=== PATIENT | female | born 2000 | race Two or more races ===

== ENCOUNTER 2021-04-30 16:20 | Inpatient (IN) | payer BC, SELFPAY ==
[~2021-04-30] VITALS: Ht 154.9 cm; Wt 88.5 kg
[2021-04-30] MEDS ORDERED: CARBOPROST 250 MCG/ML AMP IM PRN (17:15)
[2021-04-30] MEDS ORDERED: PROMETHAZINE 25 MG/ML VIAL IVP PRN (17:15)
[2021-04-30] MEDS ORDERED: NALBUPHINE 10 MG/ML AMP IVP PRN (17:15)
[2021-04-30] MEDS ORDERED: OXYTOCIN 10 UNITS/ML VIAL IM SCH (17:15)
[2021-04-30] MEDS ORDERED: LACTATED RINGERS 1,000 ML IV SCH (17:15)
[2021-04-30] MEDS ORDERED: METHYLERGONOVINE 0.2 MG/ML AMP IM PRN (17:15)
[2021-04-30] MEDS ORDERED: PNV91TAB8 PO (17:26)
[2021-04-30 17:41] LABS: BASOPHILS # (AUTO) 0.1 K/uL (0.00-0.22); BASOPHILS % (AUTO) 0.7 % (0.0-2.0); EOSINOPHILS % (AUTO) 0.2 % (0.0-4.0); HEMATOCRIT 28.6 % (36-48); HEMOGLOBIN 9.1 g/dL (12.0-16.0); LYMPHOCYTES # (AUTO) 1.9 K/uL (2.5-16.5); LYMPHOCYTES % (AUTO) 26.2 % (20.5-51.1); MEAN CORPUSCULAR HEMOGLOBIN 21 pg (27-31); MEAN CORPUSCULAR HGB CONC 32 g/dL (33-37); MEAN CORPUSCULAR VOLUME 65.1 fL (80-94); MONOCYTES # (AUTO) 0.3 K/uL (0.8-1.0); MONOCYTES % (AUTO) 3.8 % (1.7-9.3); NEUTROPHILS # (AUTO) 4.9 K/uL (1.8-7.7); NEUTROPHILS % (AUTO) 69.1 % (42.2-75.2); PLATELET COUNT (AUTO) 222 K/uL (140-450); RED CELL DISTRIBUTION WIDTH 18.8 % (11.6-13.7); WHITE BLOOD COUNT (AUTO) 7.1 K/uL (4.8-10.8)
[2021-04-30 18:14] LABS: ALBUMIN 2.5 g/dL (3.4-5.0); ANION GAP 15.6 (8-16); CARBON DIOXIDE 22.3 mmol/L (21-32); CREATININE 0.8 mg/dL (0.6-1.3); POTASSIUM 3.9 mmol/L (3.5-5.1); TOTAL BILIRUBIN 0.2 mg/dL (0.0-1.0)
[2021-04-30] MEDS ORDERED: ROPIVACAINE 0.2%/NS PREMIX 100 ML EPI SCH (18:20)
[2021-04-30] MEDS ORDERED: ROPIVACAINE 0.2%/NS PREMIX 200 ML EPI ONE (18:30)
[2021-04-30] MEDS ORDERED: OXYTOCIN 20 UNITS/LR PREMIX 1,000 ML IV ONE (19:58)
[2021-04-30 23:35] LABS: APPEARANCE,URINE HAZY (CLEAR); BILIRUBIN,URINE NEGATIVE (NEGATIVE); BLOOD, URINE NEGATIVE (NEGATIVE); COLOR,URINE YELLOW (YELLOW); LEUKOCYTE ESTERASE ,URINE TRACE (NEGATIVE); NITRITE, URINE NEGATIVE (NEGATIVE); UGLUCOSE NEGATIVE (NEGATIVE)
[2021-05-01 00:08] LABS: RBC,URINE 0-5 /HPF (0-5); WBC,URINE 20-60 /HPF (0-5)
[2021-05-01] MEDS ORDERED: SIMETHICONE 80 MG TAB.CHEW PO PRN (02:15)
[2021-05-01] MEDS ORDERED: DOCUSATE SODIUM 100 MG GELCAP PO PRN (02:15)
[2021-05-01] MEDS ORDERED: IBUPROFEN 800 MG TAB PO PRN (02:15)
[2021-05-01] MEDS ORDERED: METHYLERGONOVINE 0.2 MG/ML AMP IM PRN (02:15)
[2021-05-01] MEDS ORDERED: IBUPROFEN 600 MG TAB PO PRN (02:15)
[2021-05-01] MEDS ORDERED: bisacodyL 5 MG TABEC PO PRN (02:15)
[2021-05-01] MEDS ORDERED: MEASLES, MUMPS, AND RUBELLA 1 VIAL SQVAC ONE (02:15)
[2021-05-01] MEDS ORDERED: OXYTOCIN 10 UNITS/ML VIAL IM PRN (02:15)
[2021-05-01] MEDS ORDERED: BENZOCAINE/MENTHOL 20%-0.5% 60 GM CAN TP PRN (02:15)
[2021-05-01] MEDS ORDERED: METHYLERGONOVINE 0.2 MG TAB PO PRN (02:15)
--- NOTE | 2021-05-01 07:59 | NUR ---
PATIENT HAS BEEN SCREENED AND CATEGORIZED LOW NUTRITION RISK. PATIENT WILL BE SEEN WITHIN 7 DAYS OF ADMISSION. 05/05/[address]
[2021-05-02 11:04] LABS: HEMATOCRIT 28.2 % (36-48); HEMOGLOBIN 8.7 g/dL (12.0-16.0)
== END 2021-05-02 10:45 | disposition home or self-care (01) | DRG 807 ==
LOC: MLD 16:20 → OBSVTOIN 17:15 → MFCC 05-01 04:30
PROVIDERS: ADMIT Obstetrics & Gynecology; ATTEND Obstetrics & Gynecology
PROC: 10E0XZZ Delivery of Products of Conception, External Approach (ICD-10-PCS; principal; 2021-05-01)
PROC: 3E0R3BZ Introduction of Anesthetic Agent into Spinal Canal, Percutaneous Approach (ICD-10-PCS; 2021-05-01)
PROC: 00HU33Z Insertion of Infusion Device into Spinal Canal, Percutaneous Approach (ICD-10-PCS; 2021-05-01)
DX: O36.8130 Decreased fetal movements, third trimester, not applicable or unspecified (principal); Z37.0 Single live birth; O71.82 Other specified trauma to perineum and vulva; J45.909 Unspecified asthma, uncomplicated; Z20.822 Contact with and (suspected) exposure to COVID-19; O99.52 Diseases of the respiratory system complicating childbirth; Z3A.39 39 weeks gestation of pregnancy; Z90.49 Acquired absence of other specified parts of digestive tract
CPT/HCPCS: 36415; 51702; 59409; 76805; 76819; 80053; 81001; 85018; 85025; 86592; 86886; 86900; 86901; 87086; G0378; J2590; J2795; Q0092